=== PATIENT | male | born 1960 | race Caucasian/White ===

== ENCOUNTER 2016-11-16 11:54 | Inpatient (IN) | payer MEDICARE ==
[~2016-11-16] VITALS: Ht 175.3 cm; Wt 68.2 kg
[~2016-11-16 11:54] MED LIST: BACLOFEN20 M1 PO; CARAFATE1 G PO; GABAPENTIN100 MG PO; HYDROCODONE-APA1 TAB PO; LEVAQUIN500 MG PO; MAXZIDE 75/501 TAB PO; NYAMYC60 GM TP; PREDNISONE20 MG PO; PROAIR HFA8.5 GM INH; VALIUM10 MG PO
[2016-11-16 13:22] LABS: BASOPHILS 0.2 % (0-2); EOSINOPHILS 1.6 % (0-7); HEMOGLOBIN 13.3 g/dL (13.5-17.5); IMMATURE GRANULOCYTES 0.2 % (0-5); LYMPHOCYTES 9.3 % (15-50); MCH 28.8 pg (26.0-34.0); MCHC 33.3 g/dL (31.0-37.0); MCV 86.6 fL (80.0-100.0); MEAN PLATELET VOLUME 8.9 fL (7.4-10.4); MONOCYTES 5.6 % (2-11); NEUTROPHILS 83.1 % (40-80); PLATELET COUNT 215 10x3/uL (130-400); RBC 4.62 10x6/uL (4.20-6.10); RDW 12.9 % (11.5-14.5)
[2016-11-16 13:47] LABS: ALKALINE PHOSPHATASE 72 U/L (46-116); ALT (SGPT) 19 U/L (10-68); CALC OSMOLALITY 254 mosm/kg (275-300); CALCIUM 8.1 mg/dL (8.5-10.1); CARBON DIOXIDE 33.3 mmol/L (21.0-32.0); CHLORIDE - SERUM 93 mmol/L (98-107); CREATININE - SERUM 0.5 mg/dL (0.6-1.3); POTASSIUM - SERUM 4.2 mmol/L (3.5-5.1); PRO BNP 627 pg/mL (0-125); PROTEIN - SERUM 6.1 g/dL (6.4-8.2); SODIUM 128 mmol/L (136-145); TROPONIN-I 0.019 ng/mL (0.000-0.060); UREA NITROGEN 8 mg/dL (7-18); eGFR NON AFRICAN AMERICAN > 90 mL/min (90-120)
[2016-11-16 13:51] LABS: GLUCOSE 98 mg/dL (74-106)
[2016-11-16 16:32] VITALS: BP 119/68; Ht 175.3 cm; Wt 68.2 kg
[2016-11-16 19:00] VITALS: BP 122/77
--- NOTE | 2016-11-16 20:23 | NUR ---
PT C/O EXTERNAQL CATH BEING TO TIGHT. READJUSTED AND MADE SURE THERE WAS DRAINAGE. PT STATES HE FEELS LIKE HE NEEDS TO HAVE A BM. BUT DENIES A BED JEREZ. PT HAS NS INFUSING TO RIGHT HAND. PT NOT ABLE TO SHAREPOINT CONSULTANT CORRECTLY. DOES NOT HAVE FULL USE OF HIS FINGERS. PT DENIES ANY NEEDS AT THIS TIME. NO S/S OF DISTRESS. STATES HE WANTS A TRAPEZE BAR. WILL TRY AND LOCATE ONE. BED LOW AND CALL LIGHT WITHIN REACH WILL CPOC
--- NOTE | 2016-11-16 23:01 | NUR ---
PT C/O ABD PAIN. BLADDER IS DISTENDED. BLADDER SCAN SHOWS 999+ IN BLADDER. WILL TALK TO CHARGE NURSE ABOUT SITUATION. PT HAS EXTERNAL CATH THAT HAS SOME OUT PUT. PALPATED PT BLADDER NONE CAME OUT. PT STATES HE THINKS HE HAS A BLADDER INFECTION. PT DENIES ANY OTHER NEEDS. NO S/S OF DISTRESS. BED LOW AND CALL LIGHT WITHIN REACH WILL CPPOC
--- NOTE | 2016-11-16 23:53 | NUR ---
PT A FOLLEY IN PT AFTER BLADDERSCAN OF 999+. OUT PUT AFTER FOLLEY IN PLACE IS 1100. PT HAD AN OUT PUT OF 300 WHEN USING THE EXTERNAL FOLLEY. [address] STAT LOCKED TO RIGHT LEG. PT HAD A SMALL BM FIRM. BREAKDOWN ON BOTTOM NOTED. REDNESS BLANCHABLE. SOME OPEN AREAS ON UPPER BUTTOCK LOOKS LIKE SCRATCHES. PT CLEANED AND SKIN PROTECTION APPLIED. PT REFUSED BEING TURNED ON HIS SIDE. PT DENIES ANY NEEDS. NO S/S OF DISTRESS. WILL CPOC
--- NOTE | 2016-11-16 23:57 | NUR ---
RIGHT HAND IV REMOVED DURING TURNING TO CHANGE AND CLEAN PT. IV REMOVED CATH INTACT. BANDAID APPLIED OVER AREA. PT DENIES ANY NEEDS. WILL CPOC
[2016-11-17 04:00] VITALS: BP 82/41
[2016-11-17 07:13] LABS: BASOPHILS 0.2 % (0-2); EOSINOPHILS 0.8 % (0-7); HEMATOCRIT 43.1 % (42.0-54.0); HEMOGLOBIN 13.8 g/dL (13.5-17.5); IMMATURE GRANULOCYTES 0.2 % (0-5); LYMPHOCYTES 12.4 % (15-50); MCH 28.5 pg (26.0-34.0); MEAN PLATELET VOLUME 9.1 fL (7.4-10.4); MONOCYTES 6.6 % (2-11); NEUTROPHILS 79.8 % (40-80); PLATELET COUNT 252 10x3/uL (130-400); RBC 4.84 10x6/uL (4.20-6.10); RDW 13.2 % (11.5-14.5); WBC 9.1 10x3/uL (4.8-10.8)
[2016-11-17 07:31] LABS: CALC OSMOLALITY 266 mosm/kg (275-300); CALCIUM 8.6 mg/dL (8.5-10.1); CARBON DIOXIDE 36.9 mmol/L (21.0-32.0); CHLORIDE - SERUM 98 mmol/L (98-107); CREATININE - SERUM 0.7 mg/dL (0.6-1.3); GLUCOSE 86 mg/dL (74-106); POTASSIUM - SERUM 4.1 mmol/L (3.5-5.1); SODIUM 135 mmol/L (136-145); UREA NITROGEN 6 mg/dL (7-18); eGFR NON AFRICAN AMERICAN > 90 mL/min (90-120)
[2016-11-17 08:00] VITALS: BP 121/102
[2016-11-17] MEDS ORDERED: PROAIR HFA8.5 GM INH (12:20)
--- NOTE | 2016-11-17 16:08 | NUR ---
ALERT AND ORIENTED X4. RESTING IN BED. FAMILY AT BEDSIDE. RESTING O2 SAT 85% ROOM AIR. MAX ASSIST TO SIT UP ON SIDE OF BED. DENIES ANY NEEDS. BED LOCKED AND LOW. CALL LIGHT IN REACH. TWO SIDERAILS UP. NO IV ACCESS. NOT REQUIRED AT THIS TIME TO RESITE PER . VAZQUEZ DRAINING AT BEDSIDE. FREE FROM KINKS. OFF THE FLOOR.
--- NOTE | 2016-11-17 19:24 | NUR ---
PT ASKING FOR WATER, REORIENTED PT ABOUT THE FLUID RESTRICTION, 1200ML/DAY AND NO FREE WATER. IT IS WRITTEN ON WHITE BOARD AND PT VERBALIZED UNDERSTANDING. PT REFUSES THE BACLOFEN. SAYS IT MAKES HIM CONSTIPATED. EDUACATED PT IN [place] CAUSING CONSTIPATION. HE SAYS HE WONT TAKE THE BACLOFEN AT HOME ONLY TAKES IT HERE BECAUSE THE HOSPITAL GIVES IT TO HIM. PT HAS CLEAR YELLOW URINE DRAINAGE FROM VAZQUEZ. PT DENIES ANY NEEDS. NO S/S OF DISTRESS. WILL CPOC
[2016-11-17 20:00] VITALS: BP 127/82
--- NOTE | 2016-11-17 22:06 | NUR ---
VIs the patient Alert and Oriented? Yes 0 * How many steps to enter\exit or inside your home? NONE 0 * PCP DR MOLINA 0 * Pharmacy [facility] 0 * Preadmission Environment Home with Family 0 * ADLs Partial Dependent 0 * Partial ADLs (Assistance needed) Bathing Dressing Toileting Transfers 0 * Equipment Trapeze 0 * Other Equipment HOSPITAL BED WITH TRAPEZE [place] CATH WHEELCHAIR RAMP TO ENTER HOME 0 * List name and contact numbers for known caregivers / representatives who currently or will assist patient after discharge: MARIAH BOSS -MOTHER AND RHWGEVKSA-[phone] 0 * Community resources currently utilized Other 0 * Please name any agencies selected above. [employer]. HIS MOTHER , SISTER AND STEP BROTHER ASSIST WITH HIS CARE. MOTHER AND SISTER ARE CERTIFIED NA 0 * Can the patient safely return to the preadmission environment? Yes 0 * Has this patient been hospitalized within the prior 30 days at any hospital? No 0
--- NOTE | 2016-11-17 22:23 | NUR ---
LATE ENTRY 1300 CM MET WITH THE PATIENT AT THE BEDSIDE. HE LIVES AT HOME W/ HIS SISTER AND STEP BROTHER ASSISTING IN HIS CARE. HIS MOTHER IS ALSO A CAREGIVER. SHE LIVES VERY CLOSE. PATIENT HAS A RAMP TO ENTER HIS HOME. NO STEPS. CM HAD TO FREQUENTLY REDIRECT THE PATIENT HE DISCUSSED MANY ASPECTS OF HIS CARE, HIS HISTORY AND CONCERNS. CONFUSING AT TIMES . HE DOES NOT WANT HOME HEALTH. HAS NOT HAD GOOD EXPERIENCES WITH H/H PROVIDERS. DECLINES HOME HEALTH. WILL REQUIRE AMBULANCE TRANSPORTATION FOR DISCHARGE TO HOME. [facility] PROVIDES ALL OF HIS MEDICATIONS. PCP DR MOLINA PATIENT IS ON OXYGEN. IS WORRIED ABOUT BEING WEANED OFF O2. HE HAS HAD OXYGEN IN THE PAST. DOES NOT DESIRE IT NOW BUT HAD RESPIRATORY DIFFICULTY PRIOR TO ADMISSION. PRIMARY NURSE AND RESPIRATORY THERAPY TO WEAN O2 AND GET SATS. PATIENT ALSO HAS AN INDWELLING VAZQUEZ. IT WAS PLACED LAST NIGHT BECAUSE HE HAD 1000 CC OF RETAINED URINE. PLAN IS FOR CLAMPING AND BLADDER TRAINING TODAY. MD HOPES TO D/C VAZQUEZ BEFORE DISCHARGE. CLINICAL COORDINATOR DISCUSSED WITH PRIMARY NURSE. PATIENT STATED HIS HOME WAS VERY WARM PRIOR TO ADMISSION. HIS SISTER REPORTEDLY LEFT HIS DOOR OPEN AND THE COOL AIR ESCAPED. HE WANTS AN INHALER BEFORE HE DISCHARGES BECAUSE HE WAS SO SHORT OF BREATH WHEN HIS MDI RAN OUT OF MEDICATION. CM DISCUSSED PATIENT CHOICE ABOUT HOME HEALTH WITH CLINICAL COORDINATOR. CM AND CC AWAITED PROGRESS WITH WEANING O2 AND BLADDER TRAINING / DC OF VAZQUEZ. CHECKED THIS PM. PATIENT WAS STILL, ON O2 AT 2/L VIA NASAL CANNULA. NO NOTES REGARDING OXYGEN OR BLADDER TRAINING.
--- NOTE | 2016-11-18 00:07 | NUR ---
PT ASLEEP. RESPIRATIONS EVEN AND UNLABORED. 3L OF O2 NC. BED LOW AND CALL LIGHT WITHIN REACH. WILL CPOC
[2016-11-18 04:00] VITALS: BP 80/50
--- NOTE | 2016-11-18 06:51 | NUR ---
PT ASLEEP. RESPIRATIONS EVEN AND UNLABORED. NO S/S OF DISTRESS. O2 AT 3L NC. BED LOW AND CALL LIGHT WITHIN REACH. WILL CPOC
[2016-11-18 08:00] VITALS: BP 99/63
--- NOTE | 2016-11-18 10:00 | NUR ---
ALERT AND ORIENTED X4. IN ROOM. INITIATE ASSESSMENT. PATIENT BEGINS INTERRUPTING DOCTOR. REFUSING ANY INFORMATION. REFUSES TO LEARN TO SELF CATH. PATIENT STATES, "I HAVE BEEN IN A WHEELCHAIR FOR 24YEARS. YOU HAVE ONLY BEEN A DOCTOR FOR 20 YEARS. I THINK I KNOW MORE ABOUT MY SITUATION THAN YOU." PATIENT THEN GETS ON THE PHONE ENDING ASSESSMENT AND COMMUNICATION.
--- NOTE | 2016-11-18 12:00 | NUR ---
INITIATE BLADDER TRAINING TO DC VAZQUEZ
--- NOTE | 2016-11-18 13:28 | NUR ---
Patient Name: WIL CAGLE Encounter No: [id number] : 1960 Primary Insurance: MEDICARE A & B Anticipated DC Date: 11-18-2016 Planned Disposition: Home DCP follow-up note: CM RECEIVED DISCHARGE ORDER ALONG WITH OXYGEN ORDER. CM MET WITH PT IN ROOM, DISCUSSED HOME HEALTH, PT DENIES NEED. PT DOES WANT OXYGEN AND HAS NO PRFERENCE ON PROVIDER. PT WANTS TO GO HOME SOON POSSIBLE. PT REPORTS HE WILL GO HOME BY AMBULANCE, HIS MOTHER WILL BE AT HOME FOR OXYGEN TO BE DELIVERED AND FOR THE AMBULANCE CREW TO BE LET IN THE HOUSE. IMPORTANT MESSAGE FROM MEDICARE PROVIDED AND EXPLAINED. CM CALLED [facility] OF [place], , SPOKE TO PERRY WHO REPORTED THAT THEY HAVE HAD PT IN THE PAST AND WILL CONTACT DR. MOLINA AT CLINIC FOR SIGNED ORDER; ONCE SIGNED ORDER IS RECEIVED, [facility]NE TO ARRANGE OXYGEN DELIVERY TO PT'S HOME AND WILL NOTIFY CM WHEN DELIVERED SO THAT PT CAN DISCHARGE HOME. PT NOTIFIED. NO FURTHER DISCHARGE NEEDS IDENTIFIED. SALVADOR CHIU, CASE MANAGEMENT
--- NOTE | 2016-11-18 16:30 | NUR ---
ALERT AND ORIENTED X4. RESTING IN BED. BLADDER TRAINING CONTINUE. REFUSE TO DC VAZQUEZ. PATIENT STATES, "NO I WILL TAKE IT OUT WHEN I AM READY." DISCHARGE INSTRUCTIONS GIVEN VERBALLY AND WRITTEN. O2 OXYGEN DELIVERED TO HOUSE. DISCHARGE PAPERS SIGNED ON CHART. [facility] CALLED FOR TRANSPORT HOME. CONTINUE PLAN OF CARE. BED LOCKED AND LOW. CALL LIGHT IN REACH. TWO SIDERAILS UP.
--- NOTE | 2016-11-18 20:01 | NUR ---
[facility] PICKING UP PT NOW. PT STILL REFUSES TO LET ME REMOVE FOLLEY. PT HAS NO S/S OF DISTRESS. ALL BELONGINGS TAKEN WITH PT. PT DENIES ANY QUESTIONS OR CONCERNS.
== END 2016-11-18 20:06 | disposition home or self-care (01) | DRG 190 ==
LOC: D.ER 11:54 → D.M2 14:40
PROVIDERS: Emergency Medicine; ADMIT Family Medicine
PROC: 0T9B70Z Drainage of Bladder with Drainage Device, Via Natural or Artificial Opening (ICD-10-PCS; principal; 2016-11-17)
DX: J44.1 Chronic obstructive pulmonary disease with (acute) exacerbation (principal); G82.50 Quadriplegia, unspecified; N31.9 Neuromuscular dysfunction of bladder, unspecified; K59.09 Other constipation; N13.9 Obstructive and reflux uropathy, unspecified; Z87.891 Personal history of nicotine dependence

== ENCOUNTER 2016-12-30 01:59 | Inpatient (IN) | payer MEDICARE ==
[2016-12-30 03:30] LABS: BASOPHILS 0.1 % (0-2); EOSINOPHILS 0.1 % (0-7); HEMATOCRIT 43.9 % (42.0-54.0); HEMOGLOBIN 14.2 g/dL (13.5-17.5); IMMATURE GRANULOCYTES 0.4 % (0-5); LYMPHOCYTES 5.5 % (15-50); MCH 28.6 pg (26.0-34.0); MCHC 32.3 g/dL (31.0-37.0); MCV 88.3 fL (80.0-100.0); MEAN PLATELET VOLUME 9.2 fL (7.4-10.4); MONOCYTES 6.2 % (2-11); NEUTROPHILS 87.7 % (40-80); PLATELET COUNT 289 10x3/uL (130-400); RBC 4.97 10x6/uL (4.20-6.10); RDW 12.5 % (11.5-14.5); WBC 17.7 10x3/uL (4.8-10.8)
[2016-12-30 03:36] LABS: APPEARANCE CLOUDY (CLEAR); COLOR YELLOW (YELLOW)
[2016-12-30 03:37] LABS: BACTERIA MANY /hpf (NONE SEEN); BILIRUBIN NEGATIVE (NEGATIVE); EPITHELIAL CELLS NSEEN /hpf (0-5); GLUCOSE NEGATIVE (NEGATIVE); KETONE NEGATIVE (NEGATIVE); NITRITE NEGATIVE (NEGATIVE); PROTEIN TRACE mg/dL (NEGATIVE); RED CELLS - URINE 0-5 /hpf (0-5); UROBILINOGEN NORMAL (NORMAL); WHITE CELLS - URINE >50 /hpf (0-5)
[2016-12-30 03:48] LABS: ALBUMIN 3.2 g/dL (3.4-5.0); ALKALINE PHOSPHATASE 84 U/L (46-116); ALT (SGPT) 18 U/L (10-68); AMYLASE - SERUM 64 U/L (25-115); BILIRUBIN - TOTAL 0.62 mg/dL (0.2-1.3); CALC OSMOLALITY 264 mosm/kg (275-300); CARBON DIOXIDE 36.5 mmol/L (21.0-32.0); CHLORIDE - SERUM 92 mmol/L (98-107); CREATINE KINASE 121 UL (21-232); CREATININE - SERUM 0.7 mg/dL (0.6-1.3); GLUCOSE 127 mg/dL (74-106); LIPASE 55 U/L (73-393); POTASSIUM - SERUM 3.5 mmol/L (3.5-5.1); PRO BNP 1604 pg/mL (0-125); PROTEIN - SERUM 7.3 g/dL (6.4-8.2); SODIUM 133 mmol/L (136-145); UREA NITROGEN 5 mg/dL (7-18); eGFR NON AFRICAN AMERICAN > 90 mL/min (90-120)
[2016-12-30 03:52] LABS: CALCIUM 8.7 mg/dL (8.5-10.1); TROPONIN-I < 0.017 ng/mL (0.000-0.060)
--- NOTE | 2016-12-30 08:45 | NUR ---
PT ARRIVED TO UNIT FROM ER. TRANSFERRED PT INTO BED WITH TOTAL ASSIST HE IS A PARAPLEGIC. PT IS A&O, SHIFT ASSESSMENT COMPLETED. PTS BUTTOCKS IS EXCORIATED AND VERY RED SKIN IS BLANCHABLE AND NO SORE OR OPEN SKIN NOTED. WILL SEE ABOUT GETTING JUDITH OINTMENT ORDERED. VAZQUEZ IN PLACE DRAINING TO GRAVITY OF SIDE OF BED, CLOUDY YELLOW OUTPUT NOTED. STAT LOCK SECURED TO R.INNER THIGH. PT HAS L.THUMB PIV WITH DRSG CDI AND SWAB CAPS IN USE. WILL BEGIN ADMISSION WORK-UP AND CPOC.
[2016-12-30 09:01] VITALS: BP 107/89
[2016-12-30 12:00] VITALS: BP 82/51
--- NOTE | 2016-12-30 12:51 | NUR ---
DAVID NOTIFIED ME OF PT COMPLAINING THAT HIS PAIN MEDICATION IS NOT ENOUGH AND THAT HE TAKES A STRONGER DOSE AT HOME. I WENT TO DISCUSS THIS ISSUE WITH PT AND HE WAS RESTING IN BED WITH HIS EYES CLOSED AND SNORING. NO CURRENT NEEDS, WILL ALLOW PT TO REST.
[2016-12-30 12:54] VITALS: BP 107/89; BMI 32.4
[2016-12-30 16:02] VITALS: BP 78/30
--- NOTE | 2016-12-30 18:05 | NUR ---
Patient Name: WIL CAGLE Admission Status: ER Accout number: [id number] Admission Date: 12-30-2016 : 1960 Admission Diagnosis:URINARY TRACT INFECTION, SITE NOT SPECIFIED Attending: JORDAN MOLINA Current LOS: 1 Anticipated DC Date: 12-31-2016 Planned Disposition: Home Primary Insurance: MEDICARE A & B Discharge Planning Comments: * Is the patient Alert and Oriented? Yes 0 * How many steps to enter\exit or inside your home? RAMP 0 * PCP DR. MOLINA 0 * Pharmacy [facility] 0 * Preadmission Environment Home with Family 0 * ADLs Partial Dependent 0 * Partial ADLs (Assistance needed) Bathing Dressing Medication Management Toileting Transfers 0 * Equipment Catheter Supplies Hospital Bed Oxygen HOME ONLY Trapeze Wheelchair 0 * Other Equipment [place] CATH ELECTRIC WHEELCHAIR 0 * List name and contact numbers for known caregivers / representatives who currently or will assist patient after discharge: MARIAH BOSS, MOTHER/CAREGIVER, 0 * Community resources currently utilized Other 0 * Please name any agencies selected above. [employer]; MOTHER, SISTER AND STEP BROTHER ASSIST WITH PT'S CARE AT HOME 0 * Additional services required to return to the preadmission environment? No 0 * Can the patient safely return to the preadmission environment? Yes 0 * Has this patient been hospitalized within the prior 30 days at any hospital? Yes 0 CM RECEIVED ORDER FOR DISCHARGE PLANNING. CM MET WITH PT IN ROOM TO DISCUSS DISCHARGE PLANNING AND NEEDS. PT REPORTS LIVING AT HOME DEPENDENT ON HIS FAMILY FOR MOST OF HIS CARE. PT REPORTS HAVING ALL NEEDED MEDICAL EQUIPMENT TO INCLUDE HOME OXYGEN THAT HE ONLY WEARS WHEN NEEDED; PROVIDER IS JOANNE. PT HAS NO OUTSIDE SERVICES ASSISTING IN THE HOME. CM DISCUSSED AVAILABILITY OF HOME HEALTH, REHAB SERVICES AND MEDICAL EQUIPMENT. PT DENIES DISCHARGE NEEDS AND WILL NOT ACCEPT HOME HEALTH HE HAS FAMILY THAT MEETS ALL OF HIS CARE NEEDS. PT DOES NOT WANT STRANGERS CARING FOR HIM. PT REPORTS HE TAKES [place] MEDICAID TRANSPORT TO HIS MEDICAL APPOINTMENTS FROM HOME BUT WILL NEED AMBULANCE TRANSPORT FOR DISCHARGE HOME DUE TO NOT HAVING ELECTRIC WHEELCHAIR HERE AT THE HOSPITAL. PT DENIES NEED OF REHAB AND HOME HEALTH. PT PLANS TO DISCHARGE HOME VIA AMBULANCE TO CARE OF HIS FAMILY. CM TO FOLLOW AND ASSIST NEEDED. Semi Truck Driver: Brandon Santo
[2016-12-30] MEDS ORDERED: CARAFATE1 G PO (18:46)
[2016-12-30] MEDS ORDERED: MAXZIDE 75/501 TAB PO (18:48)
[2016-12-30] MEDS ORDERED: GABAPENTIN100 MG PO (18:49)
--- NOTE | 2016-12-30 18:49 | NUR ---
MED REC COMPLETED HOWEVER PT VERY NON-COMPLIANT AND STATES HE DOESNT TAKE THEM AND DOESNT RECALL BEING TOLD, PT DENIED THEM ALL TOGETHER UNTIL I TOLD HIM HE PICKED THEM UP FROM THE PHARMACY AND HE STILL DENIES THAT HE IS TAKING THEM. HE STATES HE ONLY TAKES BACLOFEN, HYDRO, VALIUM.
[2016-12-30 19:00] VITALS: BP 92/41
--- NOTE | 2016-12-30 20:03 | NUR ---
RECEIVED REPORT, WILL ASSUME CARE OF PT, PT SLEEPING, NO DISTRESS NOTICED, BED IS LOW, SRX2,CALL LIGHT IN REACH, WILL CONTINUE PLAN OF CARE
--- NOTE | 2016-12-30 21:23 | NUR ---
PLACED MEPLEX ON BOTTOM, REPOSITION TO L.SIDE
[2016-12-31] VITALS: BP 104/49
[2016-12-31 04:00] VITALS: BP 102/65
--- NOTE | 2016-12-31 04:06 | NUR ---
ASSESSMENT COMPLETE, SEE FLOWSHEET, PT SLEEPING ON R. SIDE, NO DISTRESS NOTICED, BED IS LOW, SRX2, CALL LIGHT IN REACH, WILL CONTINUE PLAN OF CARE
--- NOTE | 2016-12-31 04:27 | NUR ---
MANAGER MARKETING COMMUNICATIONS AT BEDSIDE TO OBTAIN VITALS, CALL LIGHT IN REACH. WILL CONTINUE WITH PLAN OF CARE.
[2016-12-31 04:31] LABS: BASOPHILS 0.1 % (0-2); HEMATOCRIT 36.3 % (42.0-54.0); HEMOGLOBIN 11.6 g/dL (13.5-17.5); IMMATURE GRANULOCYTES 0.1 % (0-5); LYMPHOCYTES 13.7 % (15-50); MCH 28.6 pg (26.0-34.0); MCV 89.6 fL (80.0-100.0); MEAN PLATELET VOLUME 9.3 fL (7.4-10.4); MONOCYTES 8.5 % (2-11); NEUTROPHILS 76.6 % (40-80); RBC 4.05 10x6/uL (4.20-6.10)
[2016-12-31 04:46] LABS: PLATELET COUNT 207 10x3/uL (130-400); WBC 6.9 10x3/uL (4.8-10.8)
[2016-12-31 04:51] LABS: CALC OSMOLALITY 275 mosm/kg (275-300); CALCIUM 8.1 mg/dL (8.5-10.1); CHLORIDE - SERUM 102 mmol/L (98-107); CREATININE - SERUM 0.3 mg/dL (0.6-1.3); GLUCOSE 104 mg/dL (74-106); SODIUM 139 mmol/L (136-145); UREA NITROGEN 6 mg/dL (7-18); eGFR NON AFRICAN AMERICAN > 90 mL/min (90-120)
[2016-12-31 08:00] VITALS: BP 125/77
--- NOTE | 2016-12-31 08:33 | NUR ---
MEDICATED FOR PAIN AT THIS TIME. SITTING UP IN BED CONSUMING AM MEAL. NO DISTRESS. CALL LIGHT WITHIN REACH.
--- NOTE | 2016-12-31 11:04 | NUR ---
SPOKE WITH AND CLARIFIED NORCO, PATIENT MAY HAVE ONE TABLET EVERY 6 HOURS, OKAY TO GET OVERLAY MATTRESS FOR PATIENT AND INFORMED MD THAT I WOULD INPUT ORDER FOR CULTURE ON URINE. THOUGHT THAT THE LAB WOULD RUN A CULTURE ON A POSITIVE REFLEX UA, THIS DEBONE SUPERVISOR TOLD HIM THAT THOSE ORDERS HAVE TO BE PLACED MANUALLY. THANKED FOR THE CLARIFICATION OF ORDERS.
--- NOTE | 2016-12-31 11:30 | NUR ---
SCDS APPLIED TO BILATERAL LOWER EXTREMITIES. SPOKE WITH WOUND CARE NURSE AFTER SPEAKING WITH DR. MOLINA AND SHE STATED SHE WILL ORDER THE OVERLAY MATTRESS.
[2016-12-31 12:03] VITALS: BP 95/28; BP 95/38
--- NOTE | 2016-12-31 12:16 | NUR ---
PATIENTS MOTHER CALLED TO SEE IF HE WOULD BE DISCHARGING HOME TODAY, THERE ARE NO DISCHARGE ORDERS AT THIS TIME. PATIENTS MOTHER ALSO WANTED TO KNOW IF THE WOUND CARE NURSE HAD BEEN IN TO SEE PATIENTS BUTTOCKS, INFORMED THE CALLER THAT NURSE IS NOT AWARE IF WOUND CARE NURSE HAS SEEN BUTTOCKS BUT SPECIALTY MATTRESS WAS ORDERED THIS AM AND AWAITING DELIVERY.
--- NOTE | 2016-12-31 13:40 | NUR ---
OVERLAY PLACED TO PATIENT BED AT THIS TIME. CREAM APPLIED TO BUTTOCKS, SACRUM AND COCCYX THAT WOUND CARE NURSE PROVIDED. PATIENTS MOTHER AT BEDSIDE. CALL LIGHT WITHIN REACH.
[2016-12-31 15:54] VITALS: BP 114/55
--- NOTE | 2016-12-31 17:08 | NUR ---
MEDICATED FOR PAIN AT THIS TIME. NO DISTRESS. PAYABLE PROCESSOR FEEDING PATIENT PM MEAL.
--- NOTE | 2016-12-31 19:23 | NUR ---
RECEIVED REPORT, WILL ASSUME CARE OF PT, COMPLAINS OF BREATHING HARD, WANT ME TO CHECK ON 1L, REPOSTION NASAL CANNULA AND SET HIM HIGHER IN BED, SAID THAT HELP, BED IS LOW, SRX2, SCD ARE ON, CALL LIGHT IN REACH, WILL CONTINUE PLAN OF CARE
[2016-12-31 20:09] VITALS: BP 116/72
--- NOTE | 2016-12-31 23:58 | NUR ---
COMPLAINS OF PAIN, GAVE NORCO 10 ORDER
[2017-01-01] VITALS: BP 123/58
--- NOTE | 2017-01-01 02:50 | NUR ---
ASSESSMENT COMPLETE, SEE FLOW SHEET, PT SLEEPING, BED IS LOW, SRX2, CALL LIGHT IN REACH, SCD ARE ON, WILL CONTINUE PLAN OF CARE
--- NOTE | 2017-01-01 03:08 | NUR ---
PT LYING IN BED, RESPIRATIONS EVEN AND UNLABORED, HOB 30 DEGREES, 1ST STEP OVERLAY FUNCTIONING PROPERLY. CONTINUE TO MONITOR PT CLOSELY. BED LOW, CALL LIGHT IN REACH, SIDE RAILS X 2.
[2017-01-01 04:00] VITALS: BP 110/79
[2017-01-01 05:14] LABS: BASOPHILS 0.2 % (0-2); EOSINOPHILS 2.5 % (0-7); HEMOGLOBIN 10.8 g/dL (13.5-17.5); IMMATURE GRANULOCYTES 0.3 % (0-5); LYMPHOCYTES 22.7 % (15-50); MCH 28.6 pg (26.0-34.0); MCHC 31.8 g/dL (31.0-37.0); MCV 89.9 fL (80.0-100.0); MEAN PLATELET VOLUME 8.8 fL (7.4-10.4); MONOCYTES 6.5 % (2-11); NEUTROPHILS 67.8 % (40-80); PLATELET COUNT 198 10x3/uL (130-400); RBC 3.78 10x6/uL (4.20-6.10); RDW 13.3 % (11.5-14.5)
[2017-01-01 05:36] LABS: CALC OSMOLALITY 275 mosm/kg (275-300); CARBON DIOXIDE 29.6 mmol/L (21.0-32.0); CHLORIDE - SERUM 105 mmol/L (98-107); CREATININE - SERUM 0.3 mg/dL (0.6-1.3); GLUCOSE 93 mg/dL (74-106); POTASSIUM - SERUM 3.3 mmol/L (3.5-5.1); SODIUM 140 mmol/L (136-145); UREA NITROGEN 4 mg/dL (7-18); eGFR NON AFRICAN AMERICAN > 90 mL/min (90-120)
[2017-01-01 08:16] VITALS: BP 107/77
--- NOTE | 2017-01-01 08:21 | NUR ---
AM MEDS GIVEN AT THIS TIME. VACUUM SPINDLE SANDER AT BEDSIDE TO FEED PT. PT DENIES ANY NEEDS AT THIS ITME. CALL LIGHT IN REACH, NAD NOTED, WILL CONTINUE TO MONITOR.
--- NOTE | 2017-01-01 08:35 | NUR ---
Wound Care consult: Noted excoriation/shearing to bilateral buttocks from sacrum to coccyx region. The skin is blanchable. Currently pt is on an air overlay mattress and is being turned q2h. He is a total care pt. Zinc oxided paste is being applied daily and as needed to the excoriated skin. Wound care will continue monitoring.
--- NOTE | 2017-01-01 09:28 | NUR ---
ADMINISTERED NORCO 10MG FOR PAIN LEVEL OF 9/10. PT DENIES ANY NEEDS AT THIS TIME. CALL LIGHT IN REACH, NAD NOTED, WILL CONTTINUE TO MONITOR.
[2017-01-01 11:45] VITALS: BP 123/69
[2017-01-01] MEDS ORDERED: LEVAQUIN250 MG PO (15:28)
[2017-01-01 16:00] VITALS: BP 132/90
--- NOTE | 2017-01-01 16:51 | NUR ---
Patient Name: WIL CAGLE Admission Status: ER Accout number: [id number] Admission Date: 12-30-2016 : 1960 Admission Diagnosis:URINARY TRACT INFECTION, SITE NOT SPECIFIED Attending: JORDAN MOLINA Current LOS: 2 Anticipated DC Date: 12-31-2016 Planned Disposition: Home Primary Insurance: MEDICARE A & B Discharge Planning Comments: CM MET WITH PT IN ROOM TO DISCUSS DISCHARGE NEEDS AND PLANNING. CM DISCUSSED AVAILABILITY OF HOME HEALTH, REHAB SERVICES AND MEDICAL EQUIPMENT. PT DENIES DISCHARGE NEEDS. AMBULANCE TO TRANSPORT HOME AT DISCHARGE. IMPORTANT MESSAGE FROM MEDICARE PROVIDED AND EXPLAINED. Maitre D': Brandon Santo
--- NOTE | 2017-01-01 17:21 | NUR ---
[facility] CALLED, WILL BE HERE TO [facility] INTERNSHIP PT IN 30-40MIN
--- NOTE | 2017-01-01 19:23 | NUR ---
PT C/O EMS TAKING TO LONG. INFORMED PT THAT EMS PUTS EMERGENCY SITUATIONS IN PRIORITY OVER TAKING HIM HOME. TOLD HIM THAT THEY WILL BE HERE SOON THEY CAN. TOLD HIM I WILL CALL AT 2100 IF THEY ARE STILL NOT HERE PT HAS NO S/S OF DISTRESS. DENIES ANY OTHER NEEDS. WILL CPOC
--- NOTE | 2017-01-01 19:45 | NUR ---
PT STILL C/O OF EMS TAKING TO LONG.
--- NOTE | 2017-01-01 20:51 | NUR ---
PT D/C TO HOME VIA EMS. PT ASKED FOR HIS SCHEDULED VALUIM AND PAIN PILL PRIOR TO LEAVING. GAVE PT VALUIM BUT TOLD PT IT IS NOT TIME FOR HYDROCODONE. PT HAS NO QUESTIONS OR CONCERNS REGARDING DISCHARGE. PT TOOK ALL BELONGINGS, EMS GIVEN THEIR PAPERS THEY NEEDED. WILL D/C PT FROM COMPUTER
[2017-01-04 20:07] LABS: AEROBE ID Final report (()); RESULT 1 Streptococcus mitis (())
== END 2017-01-01 21:12 | disposition home or self-care (01) | DRG 689 ==
LOC: D.ER 01:59 → D.M2 05:45
PROVIDERS: Family Medicine; ADMIT Family Medicine
PROC: 0T9B70Z Drainage of Bladder with Drainage Device, Via Natural or Artificial Opening (ICD-10-PCS; principal; 2016-12-30)
DX: N39.0 Urinary tract infection, site not specified (principal); G82.50 Quadriplegia, unspecified; N13.8 Other obstructive and reflux uropathy; N31.9 Neuromuscular dysfunction of bladder, unspecified; J44.9 Chronic obstructive pulmonary disease, unspecified; K75.9 Inflammatory liver disease, unspecified; K59.00 Constipation, unspecified; R33.8 Other retention of urine

== ENCOUNTER 2017-08-19 21:37 | Inpatient (IN) | payer MEDICARE ==
[~2017-08-19] VITALS: Ht 172.7 cm; Wt 68.0 kg
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
[~2017-08-19 21:37] MED LIST changes: +LEVAQUIN250 MG PO
[2017-08-19 23:39] LABS: APPEARANCE SLT CLOUDY (CLEAR); BILIRUBIN NEGATIVE (NEGATIVE); COLOR YELLOW (YELLOW); GLUCOSE NEGATIVE (NEGATIVE); KETONE NEGATIVE (NEGATIVE); NITRITE POSITIVE (NEGATIVE); PROTEIN 1+ mg/dL (NEGATIVE); SPECIFIC GRAVITY 1.015 (1.005-1.020); UROBILINOGEN NORMAL (NORMAL)
[2017-08-19 23:40] LABS: BACTERIA MANY /hpf (NONE SEEN); EPITHELIAL CELLS 0-5 /hpf (0-5)
[2017-08-20 00:39] LABS: BASOPHILS 0.2 % (0-2); EOSINOPHILS 0.1 % (0-7); HEMATOCRIT 34.8 % (42.0-54.0); HEMOGLOBIN 11.6 g/dL (13.5-17.5); IMMATURE GRANULOCYTES 0.4 % (0-5); LYMPHOCYTES 10.1 % (15-50); MCH 27.8 pg (26.0-34.0); MCHC 33.3 g/dL (31.0-37.0); MCV 83.5 fL (80.0-100.0); MEAN PLATELET VOLUME 9.1 fL (7.4-10.4); MONOCYTES 11.3 % (2-11); NEUTROPHILS 77.9 % (40-80); PLATELET COUNT 225 10x3/uL (130-400); RBC 4.17 10x6/uL (4.20-6.10); RDW 12.6 % (11.5-14.5); WBC 11.3 10x3/uL (4.8-10.8)
[2017-08-20 00:52] LABS: INR 1.38 (0.85-1.17); PROTIME 16.5 SECONDS (11.6-15.0)
[2017-08-20 00:53] LABS: APTT 40.3 SECONDS (22.8-39.4)
[2017-08-20 00:55] LABS: D-DIMER-QUANTITATIVE 0.42 ug/mLFEU (0.20-0.54)
[2017-08-20 00:56] LABS: ALBUMIN 2.6 g/dL (3.4-5.0); ALKALINE PHOSPHATASE 58 U/L (46-116); ALT (SGPT) 17 U/L (10-68); CALC OSMOLALITY 239 mosm/kg (275-300); CALCIUM 7.8 mg/dL (8.5-10.1); CARBON DIOXIDE 30.5 mmol/L (21.0-32.0); CHLORIDE - SERUM 86 mmol/L (98-107); CREATININE - SERUM 0.3 mg/dL (0.6-1.3); GLUCOSE 111 mg/dL (74-106); POTASSIUM - SERUM 4.1 mmol/L (3.5-5.1); PROTEIN - SERUM 5.8 g/dL (6.4-8.2); UREA NITROGEN 5 mg/dL (7-18); eGFR NON AFRICAN AMERICAN > 90 mL/min (90-120)
[2017-08-20 01:03] LABS: SODIUM 120 mmol/L (136-145)
[2017-08-20 01:13] LABS: CKMB 0.9 U/L (0.0-3.6); CREATINE KINASE 113 UL (21-232); TROPONIN-I 0.037 ng/mL (0.000-0.060)
[2017-08-20 09:36] VITALS: BP 111/86
[2017-08-20 11:01] VITALS: BP 111/86; BMI 22.8
[2017-08-20 13:24] VITALS: Ht 172.7 cm; Wt 68.0 kg
[2017-08-20 13:39] VITALS: BP 83/52
[2017-08-20 16:25] VITALS: BP 97/88
[2017-08-20 20:48] VITALS: BP 115/72
[2017-08-21 04:45] VITALS: BP 110/69
[2017-08-21 06:31] LABS: ALBUMIN 2.9 g/dL (3.4-5.0); ALKALINE PHOSPHATASE 63 U/L (46-116); ALT (SGPT) 18 U/L (10-68); BILIRUBIN - TOTAL 0.52 mg/dL (0.2-1.3); CALCIUM 8.8 mg/dL (8.5-10.1); CARBON DIOXIDE 35.5 mmol/L (21.0-32.0); CHLORIDE - SERUM 91 mmol/L (98-107); GLUCOSE 125 mg/dL (74-106); MAGNESIUM - SERUM 2.2 mg/dL (1.8-2.4); POTASSIUM - SERUM 3.5 mmol/L (3.5-5.1); PROTEIN - SERUM 6.8 g/dL (6.4-8.2); SODIUM 134 mmol/L (136-145)
[2017-08-21 06:32] LABS: CALC OSMOLALITY 266 mosm/kg (275-300); CREATININE - SERUM 0.4 mg/dL (0.6-1.3); UREA NITROGEN 7 mg/dL (7-18); eGFR NON AFRICAN AMERICAN > 90 mL/min (90-120)
[2017-08-21 06:46] LABS: BASOPHILS 0.1 % (0-2); EOSINOPHILS 0 % (0-7); HEMATOCRIT 41.7 % (42.0-54.0); IMMATURE GRANULOCYTES 0.4 % (0-5); LYMPHOCYTES 3.8 % (15-50); MCHC 32.4 g/dL (31.0-37.0); MONOCYTES 4.8 % (2-11); NEUTROPHILS 90.9 % (40-80); RBC 4.83 10x6/uL (4.20-6.10); RDW 12.6 % (11.5-14.5); WBC 11.4 10x3/uL (4.8-10.8)
[2017-08-21 06:47] LABS: HEMOGLOBIN 13.5 g/dL (13.5-17.5); MCV 86.3 fL (80.0-100.0); PLATELET COUNT 289 10x3/uL (130-400)
[2017-08-21 08:04] VITALS: BP 114/55
[2017-08-21 11:08] VITALS: BP 119/61
[2017-08-21 15:41] VITALS: BP 119/58
[2017-08-21 20:27] VITALS: BP 106/63
[2017-08-21 23:35] VITALS: BP 108/64
[2017-08-22 04:27] VITALS: BP 112/63
[2017-08-22 05:10] LABS: BASOPHILS 0.1 % (0-2); EOSINOPHILS 0 % (0-7); HEMATOCRIT 41.3 % (42.0-54.0); HEMOGLOBIN 13.1 g/dL (13.5-17.5); IMMATURE GRANULOCYTES 0.5 % (0-5); LYMPHOCYTES 5.4 % (15-50); MCH 27.9 pg (26.0-34.0); MCHC 31.7 g/dL (31.0-37.0); MCV 87.9 fL (80.0-100.0); MEAN PLATELET VOLUME 9.1 fL (7.4-10.4); MONOCYTES 5.4 % (2-11); NEUTROPHILS 88.6 % (40-80); PLATELET COUNT 336 10x3/uL (130-400); RDW 12.7 % (11.5-14.5); WBC 10.6 10x3/uL (4.8-10.8)
[2017-08-22 05:20] LABS: ALBUMIN 2.7 g/dL (3.4-5.0); ALKALINE PHOSPHATASE 57 U/L (46-116); ALT (SGPT) 19 U/L (10-68); CALC OSMOLALITY 272 mosm/kg (275-300); CALCIUM 8.7 mg/dL (8.5-10.1); CHLORIDE - SERUM 94 mmol/L (98-107); CREATININE - SERUM 0.4 mg/dL (0.6-1.3); GLUCOSE 140 mg/dL (74-106); MAGNESIUM - SERUM 2.3 mg/dL (1.8-2.4); POTASSIUM - SERUM 3.6 mmol/L (3.5-5.1); PROTEIN - SERUM 6.9 g/dL (6.4-8.2); SODIUM 136 mmol/L (136-145); UREA NITROGEN 10 mg/dL (7-18); eGFR NON AFRICAN AMERICAN > 90 mL/min (90-120)
[2017-08-22 08:10] VITALS: BP 106/65
[2017-08-22 12:12] VITALS: BP 111/66
[2017-08-22 15:33] VITALS: BP 112/68
[2017-08-22 20:39] VITALS: BP 94/71
[2017-08-22 20:54] LABS: APPEARANCE CLEAR (CLEAR); BILIRUBIN NEGATIVE (NEGATIVE); COLOR YELLOW (YELLOW); GLUCOSE NEGATIVE (NEGATIVE); KETONE NEGATIVE (NEGATIVE); NITRITE NEGATIVE (NEGATIVE); PROTEIN TRACE mg/dL (NEGATIVE); UROBILINOGEN NORMAL (NORMAL)
[2017-08-22 21:03] LABS: BACTERIA MODERATE /hpf (NONE SEEN)
[2017-08-22 23:37] VITALS: BP 116/60
[2017-08-23 04:34] VITALS: BP 98/68
[2017-08-23 05:56] LABS: BASOPHILS 0 % (0-2); EOSINOPHILS 0 % (0-7); HEMATOCRIT 44.7 % (42.0-54.0); HEMOGLOBIN 14.2 g/dL (13.5-17.5); IMMATURE GRANULOCYTES 0.7 % (0-5); LYMPHOCYTES 4.1 % (15-50); MCH 27.9 pg (26.0-34.0); MCHC 31.8 g/dL (31.0-37.0); MCV 87.8 fL (80.0-100.0); MONOCYTES 6.1 % (2-11); NEUTROPHILS 89.1 % (40-80); PLATELET COUNT 340 10x3/uL (130-400); RBC 5.09 10x6/uL (4.20-6.10); RDW 12.6 % (11.5-14.5); WBC 12.7 10x3/uL (4.8-10.8)
[2017-08-23 06:23] LABS: ALBUMIN 2.9 g/dL (3.4-5.0); ALKALINE PHOSPHATASE 53 U/L (46-116); ALT (SGPT) 23 U/L (10-68); BILIRUBIN - TOTAL 0.49 mg/dL (0.2-1.3); CALCIUM 8.7 mg/dL (8.5-10.1); CHLORIDE - SERUM 89 mmol/L (98-107); GLUCOSE 163 mg/dL (74-106); POTASSIUM - SERUM 3.7 mmol/L (3.5-5.1); PROTEIN - SERUM 7.1 g/dL (6.4-8.2); SODIUM 133 mmol/L (136-145)
[2017-08-23 06:24] LABS: CALC OSMOLALITY 271 mosm/kg (275-300); CREATININE - SERUM 0.6 mg/dL (0.6-1.3); MAGNESIUM - SERUM 3.2 mg/dL (1.8-2.4); UREA NITROGEN 17 mg/dL (7-18); eGFR NON AFRICAN AMERICAN > 90 mL/min (90-120)
[2017-08-23 06:27] LABS: CARBON DIOXIDE 42.8 mmol/L (21.0-32.0)
[2017-08-23 07:48] VITALS: BP 89/64
[2017-08-23 12:39] VITALS: BP 120/63
[2017-08-23 16:17] VITALS: BP 90/61
[2017-08-23 23:04] VITALS: BP 113/66
[2017-08-24 04:33] VITALS: BP 111/65
[2017-08-24 06:19] LABS: BASOPHILS 0.1 % (0-2); EOSINOPHILS 0 % (0-7); HEMATOCRIT 41.3 % (42.0-54.0); LYMPHOCYTES 5.2 % (15-50); MCH 27.4 pg (26.0-34.0); MCHC 31.5 g/dL (31.0-37.0); MCV 87.1 fL (80.0-100.0); MONOCYTES 4.6 % (2-11); NEUTROPHILS 89.1 % (40-80); PLATELET COUNT 295 10x3/uL (130-400); RBC 4.74 10x6/uL (4.20-6.10); RDW 12.7 % (11.5-14.5); WBC 11.6 10x3/uL (4.8-10.8)
[2017-08-24 06:47] LABS: ALBUMIN 2.8 g/dL (3.4-5.0); ALKALINE PHOSPHATASE 47 U/L (46-116); CALC OSMOLALITY 268 mosm/kg (275-300); CALCIUM 8.6 mg/dL (8.5-10.1); CHLORIDE - SERUM 91 mmol/L (98-107); GLUCOSE 153 mg/dL (74-106); MAGNESIUM - SERUM 2.8 mg/dL (1.8-2.4); POTASSIUM - SERUM 3.5 mmol/L (3.5-5.1); PROTEIN - SERUM 6.4 g/dL (6.4-8.2); SODIUM 133 mmol/L (136-145); UREA NITROGEN 13 mg/dL (7-18)
[2017-08-24 06:50] LABS: ALT (SGPT) 49 U/L (10-68); CREATININE - SERUM 0.4 mg/dL (0.6-1.3); eGFR NON AFRICAN AMERICAN > 90 mL/min (90-120)
[2017-08-24 06:53] LABS: CARBON DIOXIDE 41.7 mmol/L (21.0-32.0)
[2017-08-24 08:42] VITALS: BP 97/64
[2017-08-24 12:45] VITALS: BP 104/63
[2017-08-24 16:35] VITALS: BP 102/61
[2017-08-24 20:00] VITALS: BP 104/57
[2017-08-25 04:00] VITALS: BP 96/57
[2017-08-25 07:29] LABS: BASOPHILS 0.1 % (0-2); EOSINOPHILS 0.1 % (0-7); HEMATOCRIT 39.9 % (42.0-54.0); HEMOGLOBIN 12.5 g/dL (13.5-17.5); IMMATURE GRANULOCYTES 1.2 % (0-5); LYMPHOCYTES 10.9 % (15-50); MCH 27.4 pg (26.0-34.0); MCHC 31.3 g/dL (31.0-37.0); MCV 87.3 fL (80.0-100.0); MEAN PLATELET VOLUME 8.8 fL (7.4-10.4); MONOCYTES 7.3 % (2-11); NEUTROPHILS 80.4 % (40-80); PLATELET COUNT 246 10x3/uL (130-400); RBC 4.57 10x6/uL (4.20-6.10); RDW 13.1 % (11.5-14.5)
[2017-08-25 07:43] LABS: ALBUMIN 2.6 g/dL (3.4-5.0); ALKALINE PHOSPHATASE 44 U/L (46-116); ALT (SGPT) 56 U/L (10-68); CALC OSMOLALITY 264 mosm/kg (275-300); CALCIUM 8.1 mg/dL (8.5-10.1); CHLORIDE - SERUM 91 mmol/L (98-107); CREATININE - SERUM 0.5 mg/dL (0.6-1.3); GLUCOSE 115 mg/dL (74-106); MAGNESIUM - SERUM 2.5 mg/dL (1.8-2.4); PROTEIN - SERUM 5.9 g/dL (6.4-8.2); SODIUM 131 mmol/L (136-145); UREA NITROGEN 14 mg/dL (7-18); eGFR NON AFRICAN AMERICAN > 90 mL/min (90-120)
[2017-08-25 07:48] LABS: WBC 18.4 10x3/uL (4.8-10.8)
[2017-08-25 07:50] LABS: POTASSIUM - SERUM 2.9 mmol/L (3.5-5.1)
[2017-08-25 08:00] VITALS: BP 93/59
[2017-08-25 22:58] VITALS: BP 95/63
[2017-08-26 05:13] LABS: BASOPHILS 0.1 % (0-2); EOSINOPHILS 0.1 % (0-7); HEMATOCRIT 41.4 % (42.0-54.0); HEMOGLOBIN 13.2 g/dL (13.5-17.5); IMMATURE GRANULOCYTES 1.8 % (0-5); LYMPHOCYTES 8.5 % (15-50); MCH 28.2 pg (26.0-34.0); MCHC 31.9 g/dL (31.0-37.0); MCV 88.5 fL (80.0-100.0); MEAN PLATELET VOLUME 9.2 fL (7.4-10.4); MONOCYTES 7.6 % (2-11); NEUTROPHILS 81.9 % (40-80); PLATELET COUNT 257 10x3/uL (130-400); RBC 4.68 10x6/uL (4.20-6.10); RDW 13.6 % (11.5-14.5); WBC 18.1 10x3/uL (4.8-10.8)
[2017-08-26 05:40] VITALS: BP 94/64
[2017-08-26 05:41] LABS: ALBUMIN 2.7 g/dL (3.4-5.0); ALKALINE PHOSPHATASE 41 U/L (46-116); ALT (SGPT) 67 U/L (10-68); CALC OSMOLALITY 269 mosm/kg (275-300); CALCIUM 8.7 mg/dL (8.5-10.1); CARBON DIOXIDE 38.9 mmol/L (21.0-32.0); CHLORIDE - SERUM 94 mmol/L (98-107); CREATININE - SERUM 0.5 mg/dL (0.6-1.3); GLUCOSE 101 mg/dL (74-106); MAGNESIUM - SERUM 2.6 mg/dL (1.8-2.4); POTASSIUM - SERUM 3.8 mmol/L (3.5-5.1); SODIUM 135 mmol/L (136-145); UREA NITROGEN 12 mg/dL (7-18); eGFR NON AFRICAN AMERICAN > 90 mL/min (90-120)
[2017-08-26 09:20] VITALS: BP 158/86; BP 95/45
[2017-08-26 13:26] VITALS: BP 92/54
[2017-08-26 18:26] VITALS: BP 87/55
[2017-08-26 22:17] VITALS: BP 94/60
[2017-08-27 03:56] VITALS: BP 164/69
[2017-08-27 06:27] LABS: BASOPHILS 0.1 % (0-2); EOSINOPHILS 0.1 % (0-7); HEMATOCRIT 39.3 % (42.0-54.0); HEMOGLOBIN 12.2 g/dL (13.5-17.5); IMMATURE GRANULOCYTES 1.9 % (0-5); LYMPHOCYTES 7.8 % (15-50); MCH 27.6 pg (26.0-34.0); MCV 88.9 fL (80.0-100.0); MEAN PLATELET VOLUME 9.3 fL (7.4-10.4); MONOCYTES 7.7 % (2-11); NEUTROPHILS 82.4 % (40-80); PLATELET COUNT 248 10x3/uL (130-400); RBC 4.42 10x6/uL (4.20-6.10); RDW 13.8 % (11.5-14.5); WBC 18.6 10x3/uL (4.8-10.8)
[2017-08-27 07:22] LABS: ALBUMIN 2.7 g/dL (3.4-5.0); ALKALINE PHOSPHATASE 42 U/L (46-116); ALT (SGPT) 72 U/L (10-68); BILIRUBIN - TOTAL 0.33 mg/dL (0.2-1.3); CALC OSMOLALITY 270 mosm/kg (275-300); CALCIUM 8.5 mg/dL (8.5-10.1); CARBON DIOXIDE 35.5 mmol/L (21.0-32.0); CHLORIDE - SERUM 95 mmol/L (98-107); CREATININE - SERUM 0.4 mg/dL (0.6-1.3); GLUCOSE 105 mg/dL (74-106); MAGNESIUM - SERUM 2.6 mg/dL (1.8-2.4); POTASSIUM - SERUM 3.4 mmol/L (3.5-5.1); PROTEIN - SERUM 5.8 g/dL (6.4-8.2); SODIUM 135 mmol/L (136-145); UREA NITROGEN 14 mg/dL (7-18); eGFR NON AFRICAN AMERICAN > 90 mL/min (90-120)
[2017-08-27 10:03] VITALS: BP 100/43
[2017-08-27] MEDS ORDERED: MUCINEX600 MG PO (13:34)
[2017-08-27 13:35] VITALS: BP 102/65
[2017-08-27] MEDS ORDERED: MEDROL DOSE PACK4 MG PO (13:35)
== END 2017-08-27 16:07 | disposition home or self-care (01) | DRG 189 ==
LOC: D.ER 21:37 → D.MS 08-20 02:15 → D.EDHOLD 08-20 02:15 → D.MS 08-20 03:33
PROVIDERS: Family Medicine
DX: J96.01 Acute respiratory failure with hypoxia (principal); J81.0 Acute pulmonary edema; G82.50 Quadriplegia, unspecified; J44.1 Chronic obstructive pulmonary disease with (acute) exacerbation; E87.1 Hypo-osmolality and hyponatremia; N39.0 Urinary tract infection, site not specified; E87.3 Alkalosis; I50.22 Chronic systolic (congestive) heart failure; J96.02 Acute respiratory failure with hypercapnia; R63.1 Polydipsia; F54 Psychological and behavioral factors associated with disorders or diseases classified elsewhere; N31.9 Neuromuscular dysfunction of bladder, unspecified; B96.5 Pseudomonas (aeruginosa) (mallei) (pseudomallei) as the cause of diseases classified elsewhere; Z66 Do not resuscitate